=== PATIENT | female | born 1990 | race Hispanic/Latino ===

== ENCOUNTER 2018-03-17 05:37 | Day surgery (SDC) | payer MEDICAID ==
[~2018-03-17 05:37] MED LIST: NEURONTIN PO NR; PEPCID PO NR; VERSED IV NR
[2018-03-17] MEDS ORDERED: LACTATED RINGERS 1,000 ML ONE (06:45)
--- NOTE | 2018-03-17 07:00 | Anesthesia Consultation ---
Anesthesia Consult and Med Hx Date of service: 03/17/18 - Airway Anesthetic Teeth Evaluation: Good ROM Head & Neck: Adequate Mental/Hyoid Distance: Adequate Mallampati Class: Class II Intubation Access Assessment: Probably Good - Pulmonary Exam CTA: Yes - Cardiac Exam Cardiac Exam: RRR Anesthetic Concerns: Pt is S/P decompression of Chiari 1 malformation. She has some degree of intracranial hypertension. Neck exam shows essentially FROM but with some pain on extreme motion. - Pre-Operative Health Status ASA Pre-Surgery Classification: ASA3 Proposed Anesthetic Plan: General - Pulmonary Hx Smoking: Yes (1/2 PPD X 8 YRS) Hx Sleep Apnea: No (ROSALBA PRE SCREEN NEGATIVE) - Cardiovascular System Hx Hypertension: No - Central Nervous System Hx Back Pain: Yes (BACK AND NECK PAIN TO CHHAYA LEGS-WORSE ON RIGHT) - Hematic Hx Anemia: Yes - Other Systems Hx Cancer: No
--- NOTE | 2018-03-17 07:02 | Anesthesia Day of Surgery ---
Anesthesia Day of Surgery - Day of Surgery Patient Examined: Yes Patient H&P Reviewed: Yes Patient is NPO: Yes
[2018-03-17 07:14] LABS: Basophils % (Auto) 0.3 % (0.0-1.8); Eosinophils # (Auto) 0.2 K/mm3 (0.0-0.4); Eosinophils % (Auto) 2.7 % (0.0-4.3); Hematocrit 38.2 % (30.3-42.9); Hemoglobin 12.7 gm/dl (10.1-14.3); Lymphocytes % (Auto) 34.5 % (13.4-35.0); Mean Corpuscular HGB Conc 33 % (30-34); Mean Corpuscular Volume 87 fl (79-97); Monocytes # (Auto) 0.5 K/mm3 (0.0-0.8); Monocytes % (Auto) 9.1 % (0.0-7.3); Platelet Count 183 K/mm3 (140-440); Red Cell Distribution Width 13.1 % (13.2-15.2)
[2018-03-17] MEDS ORDERED: DIPRIVAN 10 MG/ML IV ONE (07:32)
[2018-03-17] MEDS ORDERED: SUBLIMAZE ONE ×3 (07:32→12:32)
[2018-03-17] MEDS ORDERED: DECADRON ONE (07:33)
[2018-03-17] MEDS ORDERED: PEPCID ONE (07:33)
[2018-03-17] MEDS ORDERED: CLEOCIN 600 MG/50 mL 600 MG/50 ML BAG IV ONE (07:33)
[2018-03-17] MEDS ORDERED: XYLOCAINE MPF 2% ONE (07:33)
[2018-03-17] MEDS ORDERED: QUELICIN ONE (07:33)
[2018-03-17] MEDS ORDERED: ZOFRAN ONE ×2 (07:33→14:07)
[2018-03-17 07:36] LABS: Alanine Aminotransferase 6 units/L (7-56); Albumin 3.9 g/dL (3.9-5); BUN/Creatinine Ratio 14; Blood Urea Nitrogen 10 mg/dL (7-17); Calcium 8.5 mg/dL (8.4-10.2); Hemolysis Index 2
[2018-03-17] MEDS ORDERED: VERSED IV NR (08:00)
[2018-03-17] MEDS ORDERED: CLEOCIN 600 MG/50 mL 600 MG/50 ML BAG IV NR (08:00)
[2018-03-17] MEDS ORDERED: NEURONTIN PO NR (08:00)
[2018-03-17] MEDS ORDERED: PEPCID PO NR (08:00)
[2018-03-17] MEDS ORDERED: LACTATED RINGERS 1,000 ML IV SCH (08:00)
[2018-03-17] MEDS ORDERED: MARCAINE 0.5% INFILTRATI ONE ×3 (08:14→12:20)
[2018-03-17] MEDS ORDERED: NACL 0.9% 1000 ML 2,000 ML ONE ×2 (08:14→11:05)
[2018-03-17] MEDS ORDERED: BACITRACIN ONE (08:15)
[2018-03-17] MEDS ORDERED: XYLOCAINE 1%/ EPI 1:100,000 INFILTRATI ONE ×3 (08:15→09:03)
[2018-03-17] MEDS ORDERED: ANTIBIOTIC OINT TP ONE ×2 (08:17→09:02)
[2018-03-17] MEDS ORDERED: METHYLENE BLUE ONE (08:17)
[2018-03-17] MEDS ORDERED: ANCEF ONE (08:17)
--- NOTE | 2018-03-17 08:56 | Operative Report ---
Operative Report Operative Report: Date of Service: 03/17/2018. PREOPERATIVE DIAGNOSIS: 1. Chronic axial low back pain. 2. Degenerative disc disease of lumbar spine. 3. Lumbar disc herniationL5-S1. 4. Lumbar radiculopathy. 5. Chiari I malformation with intracranial hypertension. POSTOPERATIVE DIAGNOSIS: 1. Chronic axial low back pain. 2. Degenerative disc disease of lumbar spine. 3. Lumbar disc herniationL5-S1. 4. Lumbar radiculopathy. 5. Chiari I malformation with intracranial hypertension. PROCEDURE PERFORMED: 1. Lumbar discctomy at L5-S1 with right foraminotomy. 2. Intraoperative lumbar myelography. 3. Therapeutic lumbar puncture. SURGEON: MANJIT OCONNELL M.D. ANESTHESIA: MARLEEN Maravilla, 1% lidocaine local/0.5% bupivicaine. NEUROMONITORING: EMG and SSEP neuromonitoring bilateral lower extremities was performed throughout the procedure. Bilateral activity was identified initially associated with intraoperative myelography. No abnormal activity was observed during the actual procedure. EBL: 10 mL DESCRIPTION OF PROCEDURE: Following informed consent, the patient was brought to the operative suite and placed on the table a prone position. General endotracheal anesthesia was delivered without complication. The back was sterilely prepped and draped in routine fashion. Patient received 600 mg of clindamycin intravenously for antimicrobial prophylaxis. A C-arm was brought into place with attention turned to the lumbar spine. Attention was turned toward the L34 interlaminar space. A 25 -gauge 3.5 inch spinal needle was directed into the central spinal canal. Following spontaneous return of CSF the intrathecal pressure was measured at 260 mm H20. CSF was withdrawn reducing the pressure to 160 mmH2O. .10 mL of Omnipaque 240 was injected with satisfactory opacification of the subarachnoid fluid within the ventral aspect of the thecal sac. The following findings were identified with intraoperative lumbar myelography: No significant stenosis of the central spinal canal. Shallow indentation of the ventral thecal sac at L5-S1 consistent with central disc herniation. No nerve root impingement identified.. Discography was performed at L5-S1 using a 22-gauge needle advanced through a left posterior lateral approach. Arch midline grade 3 annular tear was identified. No full thickness disruption observed. Attention was next turned to the lumbar spine at L5-S1. Following injection of 1% lidocaine with epinephrine, a 1 cm vertical incision was made overlying the L5-S1 on the right. Using serial dilators, a tract was created extending to the right L5-S1 neural foramen. A tubular retractor was anchored. Right L5-S1 foraminotomy was performed. The bony structures and attached soft tissues were identified under direct visualization. This was followed by placement of a endoscope. Bipolar electrocautery was utilized for hemostasis. The annulus was identified. The facet capsule was removed. Once the annulus was defined, bipolar electrocautery was used for neural ablation. An annulotomy was performed. Disc material was extracted within the central aspect of the disc. Bipolar electrocautery was then utilized to ablate the large midline annular tear. The bipolar device was then advanced to the anterolateral aspect of the annulus at the location of the anterior grade 2 tear. This area was cauterized extensively. The ventral epidural space was explored and no additional disc fragments were identified. There was satisfactory decompression of right lateral recess and right S1 nerve root. Once decompression appeared to be satisfactory, right L5-S1 transforaminal epidural injection was performed with injection of 12 mg of betamethasone mixed 2 mL of 0.5% bupivacaine.. The incision was closed with interrupted 3-0 Vicryl sutures and skin edges were approximated with 3-0 Prolene interrupted sutures. Sterile dressing was applied. The patient was turned onto the gurney, extubated and taken to the PACU in stable cardiopulmonary neurologic condition. CONDITION AT DISCHARGE: Good. FOLLOW-UP: In office in 7-10 days for wound check.
[2018-03-17] MEDS ORDERED: BACITRACIN IR ONE ×2 (09:02→09:40)
[2018-03-17] MEDS ORDERED: NACL 0.9% IR ONE ×2 (09:02→09:40)
[2018-03-17] MEDS ORDERED: METHYLENE BLUE IRRIGATION ONE ×2 (09:02→09:45)
[2018-03-17] MEDS ORDERED: OMNIPAQUE (240 MG) IRRIGATION ONE ×2 (09:02→09:45)
[2018-03-17] MEDS ORDERED: NACL 0.9% 1000 ML IR ONE (09:02)
[2018-03-17] MEDS ORDERED: CLEOCIN 300 MG/50 mL 300 MG/50 ML BAG IV ONE (09:12)
[2018-03-17] MEDS ORDERED: CELESTONE SOLUSPAN IM ONE ×2 (11:35)
[2018-03-17] MEDS ORDERED: ZOFRAN IV PRN (12:17)
[2018-03-17] MEDS ORDERED: MORPHINE IV PRN (12:17)
[2018-03-17 13:40] VITALS: BP 100/62
[2018-03-17] MEDS ORDERED: ZOFRAN IV ONE (14:03)
--- NOTE | 2018-03-17 16:01 | Post Anesthesia Evaluation ---
- Post Anesthesia Evaluation Patient Participated: Yes Airway Patent: Yes Stable Respiratory Function: Yes Nausea/Vomiting: No Temp > 96.8F: Yes Pain Manageable: Yes Adequeate Hydration: Yes Anesthesia Complications: No
--- NOTE | 2018-03-20 07:35 | Fluoroscopy Report ---
FLUOROSCOPY MYELOGRAM LUMBOSACRAL History: Herniated disc. Findings: Fluoroscopy was provided by radiology during lumbosacral myelogram by Dr. Loaiza. 4 fluoroscopic images were captured which demonstrate contrast agent within the lumbar canal. Please correlate with the procedural report. Impression: Successful lumbosacral myelogram.
--- NOTE | 2018-03-20 07:37 | Fluoroscopy Report ---
FLUOROSCOPY LUMBAR PUNCTURE History: Herniated disc. Findings: Fluoroscopy was provided by radiology during a lumbar puncture by Dr. Loaiza. 2 fluoroscopic images were saved which demonstrate good needle placement at L2-3. Minimal spondylosis is noted. Please correlate with the procedural report as needed. Impression: Successful fluoroscopy-guided lumbar puncture. Minimal spondylosis.
--- NOTE | 2018-03-20 07:39 | XRay Report ---
AP AND LATERAL LUMBOSACRAL SPINE: History: Herniated disc. Fluoroscopy was provided by radiology during a lumbar procedure by Dr. Loaiza. 6 fluoroscopic images were saved. There is contrast in the lumbar canal and within the L5-S1 disc space. Right foraminotomy and transforaminal injection at L5-S1 were performed per the operative note. Please correlate with the procedural report as needed. IMPRESSION: Intraoperative findings as described.
== END 2018-03-17 14:35 | disposition home or self-care (01) ==
LOC: OR 05:37
PROVIDERS: ATTEND Radiology Diagnostic Radiology
DX: M51.36 Other intervertebral disc degeneration, lumbar region (principal); M51.27 Other intervertebral disc displacement, lumbosacral region; M54.16 Radiculopathy, lumbar region; F17.210 Nicotine dependence, cigarettes, uncomplicated; G43.909 Migraine, unspecified, not intractable, without status migrainosus; F41.9 Anxiety disorder, unspecified; Z79.899 Other long term (current) drug therapy; Z88.0 Allergy status to penicillin; Z98.890 Other specified postprocedural states; Z90.49 Acquired absence of other specified parts of digestive tract; Z98.51 Tubal ligation status; Z86.2 Personal history of diseases of the blood and blood-forming organs and certain disorders involving the immune mechanism; Z88.8 Allergy status to other drugs, medicaments and biological substances
CPT/HCPCS: 36415; 62270; 62304; 62322; 63047; 72100; 77003; 80053; 81025; 85025; 86850; 86900; 86901; J0330; J0702; J1100; J2250; J2270; J2405; J2704; J3010; J7030; J7120; Q9966; Q9968; J0690